=== PATIENT | male | born 1990 | race Caucasian/White ===

== ENCOUNTER 2020-04-30 08:02 | Emergency (ER) | payer MEDICAID ==
[~2020-04-30] VITALS: Ht 167.6 cm; Wt 75.0 kg
[2020-04-30 10:03] VITALS: BP 148/80
== END 2020-04-30 10:00 | disposition home or self-care (01) ==
LOC: EMS 08:19
DX: J02.9 Acute pharyngitis, unspecified (principal); R05 Cough; F12.90 Cannabis use, unspecified, uncomplicated; Z20.822 Contact with and (suspected) exposure to COVID-19
CPT/HCPCS: 99283; U0003